=== PATIENT | female | born 1965 | race Two or more races ===

== ENCOUNTER 2021-03-09 06:50 | Day surgery (SDC) | payer OTHER ==
[~2021-03-09 06:50] MED LIST: ADULT LOW DOSE81 M1 PO; AMOXICILLIN250 MG PO; ATORVASTATIN CA40 MG PO; COZAAR100 MG PO; FORTAMET1000 MG PO; GLUCOSAM PO; JARDIANCE25 MG PO; LEVOT; NEURIN; NORVASC5 MG PO; NOVOLIN N100 UNIT/1; VITA; VITAMIN C PO; [UNRECOGNIZED DRUG - OTHER]
[2021-03-09] MEDS ORDERED: PERCOCET 5-3251 EACH PO (09:41)
== END 2021-03-09 14:00 | disposition home or self-care (01) ==
LOC: CIR.AMB 06:50
PROVIDERS: ATTEND Surgery
DX: D12.9 Benign neoplasm of anus and anal canal (principal); Z20.822 Contact with and (suspected) exposure to COVID-19